=== PATIENT | male | born 1980 | race Caucasian/White ===

== ENCOUNTER 2018-09-26 07:24 | Emergency (ER) | payer OTHER ==
[~2018-09-26] VITALS: Ht 177.8 cm; Wt 87.1 kg
[2018-09-26 07:50] VITALS: BP 146/99
[2018-09-26] MEDS ORDERED: LIDOCAINE W/ EPINEPHRINE 1 % INJ 30ML ONE (08:09)
[2018-09-26] MEDS ORDERED: cefTRIAXone SOD 1,000 MG VL IM ONE (08:15)
== END 2018-09-26 08:33 | disposition home or self-care (01) ==
LOC: ER 07:24
DX: L03.113 Cellulitis of right upper limb (principal)
CPT/HCPCS: 73130; 96372; 99283; J0696; J2001